=== PATIENT | male | born 1970 | race Caucasian/White ===

== ENCOUNTER 2018-09-13 08:43 | Emergency (ER) | payer BC ==
[2018-09-13] MEDS ORDERED: NORMAL SALINE 1000 ML 1,000 ML IV ONE (09:24)
[2018-09-13] MEDS ORDERED: ONDANSETRON HCL INJ/PF 4 MG/2 ML SDV IV ONE (09:24)
[2018-09-13] MEDS ORDERED: BENZONATATE 100 MG CAPSULE PO ONE (09:25)
--- NOTE | 2018-09-13 09:32 | ER Document Report ---
ED General - General Chief Complaint: Dizziness Stated Complaint: POSSIBLE SYNCOPE Time Seen by Provider: 09/13/18 09:12 Notes: Patient is a 40-year-old male presents to the emergency department with a chief complaint of productive cough and lightheadedness. Patient states he developed a productive cough 2 weeks ago with yellow sputum. Patient reports that the cough is worse at night. Patient states he is coughed so much she feels like h is throat is raw. Patient denies chest pain or palpitations. Patient does report that it is hard to get a deep breath. Patient states he has had low- grade fevers with chills at home. Patient denies vomiting or diarrhea. Patient has had nausea with cough. Patient states he was driving from [place] to [place] today when he felt lightheaded and like he was going to pass out. Patient states he sought care at that time. Patient does report a history of high blood pressure in which she did take his medication this morning. Patient has not taken his meds for his blood pressure in the past few days. TRAVEL OUTSIDE OF THE [place] IN LAST 30 DAYS: No - Related Data Allergies/Adverse Reactions: No Known Allergies Allergy (Verified 09/13/18 08:44) Past Medical History - General Information source: Patient - Social History Smoking Status: Current Every Day Smoker Cigarette use (# per day): Yes - 3/4 ppd Frequency of alcohol use: None Drug Abuse: None Lives with: Family Family History: None - Past Medical History Cardiac Medical History: Reports: Hx Hypertension Pulmonary Medical History: Reports: None EENT Medical History: Reports: None Neurological Medical History: Reports: None Endocrine Medical History: Reports: None Renal/ Medical History: Reports: None Malignancy Medical History: Reports None GI Medical History: Reports: None Musculoskeletal Medical History: Reports None Skin Medical History: Reports None Psychiatric Medical History: Reports: None Traumatic Medical History: Reports: None Infectious Medical History: Reports: None Past Surgical History: Reports: Hx Abdominal Surgery Review of Systems - Review of Systems Constitutional: See HPI EENT: No symptoms reported Cardiovascular: See HPI Respiratory: See HPI Gastrointestinal: See HPI Genitourinary: No symptoms reported Male Genitourinary: No symptoms reported Musculoskeletal: No symptoms reported Skin: No symptoms reported Hematologic/Lymphatic: No symptoms reported Neurological/Psychological: No symptoms reported Physical Exam - Vital signs Vitals: Temp Pulse Resp BP Pulse Ox 97.2 F 104 H 26 H 159/120 H 100 09/13/18 08:45 09/13/18 08:45 09/13/18 08:45 09/13/18 08:45 09/13/18 08:45 Interpretation: Hypertensive, Tachycardic, Tachypneic - Notes Notes: GENERAL: Well-appearing, well-nourished and in no acute distress. HEAD: Atraumatic, normocephalic. EYES: Pupils equal round and reactive to light, extraocular movements intact, sclera anicteric, conjunctiva are normal. ENT: TMs normal, nares patent, oropharynx reddened without exudates. Moist mucous membranes. NECK: Normal range of motion, supple without lymphadenopathy or JVD. LUNGS: Scattered rhonchi noted throughout that clears with cough. No wheezes rales or rhonchi. HEART: Tachycardiac rate and regular rhythm without murmurs, rubs or gallops. ABDOMEN: Soft, round, midline healed old scar, nontender, normoactive bowel sounds. No guarding, no rebound. No masses appreciated. BACK: No cervical, thoracic, lumbar midline tenderness. No saddle anesthesia, normal distal neurovascular exam. GENITOURINARY: Deferred. EXTREMITIES: Normal range of motion, no pitting or edema. No clubbing or cyanosis. NEUROLOGICAL: Cranial nerves II through XII grossly intact. Normal speech, normal gait. PSYCH: Normal mood, normal affect. SKIN: Warm, Dry, normal turgor, no rashes or lesions noted. Course - Re-evaluation Re-evalutation: 09/13/18 12:45 Upon reevaluation patient is resting comfortably and sleeping on stretcher. Patient is easy to arouse. Patient states feeling much better with his breathing after receiving a DuoNeb. Patient states his cough has subsided since receiving the Tessalon Perles. Patient states he does feel better. Was noted that patient had occasional PVCs on the monitor. Patient denies chest pain or palpitations. Patient says he does have some chest discomfort but this is associated with coughing spells. 09/13/18 13:14 Discussed patient's case and symptoms with Dr. Rice who went to evaluate comp lete the patient at the bedside. He agrees with the treatment plan. I did discuss with the patient to decrease smoking or stop if he is able to as this can make his symptoms worsen and last longer. Also encourage patient to increase fluid intake limit, limit caffeine and alcohol as this can also cause PVCs. - Vital Signs Vital signs: Temp Pulse Resp BP Pulse Ox 97.2 F 104 H 20 159/99 H 95 09/13/18 08:45 09/13/18 08:45 09/13/18 13:05 09/13/18 13:18 09/13/18 13:05 - Laboratory Result Diagrams: 09/13/18 09:20 09/13/18 09:20 Laboratory results interpreted by me: 09/13/18 09/13/18 09:20 09:20 RBC 5.60 H MCV 79 L MCH 26.9 L RDW 14.4 H Glucose 120 H ALT 20 L - Diagnostic Test Radiology reviewed: Reports reviewed Discharge - Discharge Clinical Impression: Bronchitis Condition: Stable Disposition: HOME, SELF-CARE Additional Instructions: Today you were seen in the emergency department for productive cough and lightheadedness. We did obtain a chest x-ray which was negative for pneumonia. Your lab work was unremarkable including a Troponin which is a cardiac enzyme. Your EKG was normal but did show an occasional PVC. A PVC is a premature beat. These can become problematic when they are more frequent and cause symptoms such as palpitations associated with passing out, dizziness, or a feeling of passing out. Seek medical attention if you experience any of the symptoms. These follow-up with your primary care physician. Your symptoms are consistent with bronchitis. Typically bronchitis is not treated with antibiotics. I am going to prescribe you an albuterol inhaler, Tessalon Perles for cough, a codeine cough syrup that you can use at night for the persistent cough. Please decrease smoking as this can irritate your lungs and cause the symptoms of the bronchitis to worsen. Please call your primary care doctor and schedule a follow up appointment for early next week. Over the weekend if your symptoms worsen you d evelop a fever, vomiting, increased shortness of breath, or any other concerning signs or symptoms please seek medical attention in the emergency department. PVCs The palpitations you feel are due to premature heartbeats, often called PVCs. Often the "extra" beat is not felt -- instead you feel a pause followed by a strong heartbeat. These premature beats are not harmful to you. Your evaluation has shown no evidence of active heart disease. Extra beats occur more commonly after caffeine, nicotine, alcohol, cold pills, and diet pills. Emotional stress or fatigue also provoke them. Extra beats are only dangerous when heart disease is present. Premature beats usually need no treatment. If they are frequent, or if evidence of heart disease develops, medication can be given to suppress them. Contact the physician at once if you develop persistent lightheadedness, shortness of breath, chest pain, or swelling of the ankles. Bronchitis You have acute bronchitis. This disease is an infection or inflammation of the air passageways in your lungs. Symptoms usually include cough, low grade fever, shortness of breath, and wheezing. The cough usually persists for a couple of weeks. Most cases of bronchitis get better without antibiotics. We prescribe antibiotics when we believe bacteria are damaging your airways, or if there's high risk the bronchitis will worsen into pneumonia. Increase your fluid intake. A cool mist humidifier may make your lungs more comfortable. An expectorant (cough medicine that loosens phlegm) can help. If you smoke, STOP!!! Recovery from bronchitis can be somewhat slow, but you should see improvement within a day or two. Repeated episodes of bronchitis may result in lung damage -- for example, chronic bronchitis, recurrent pneumonias, or emphysema. Call the doctor if you develop increasing fever, shortness of breath, chest pain, bloody sputum, or otherwise worsen. If you have not improved at all after several days, contact the physician. Cough Suppressant/Expectorant Medication You are to use a cough medication as needed for relief of symptoms. This medicine is a combination of an expectorant (to make the mucous thinner and more easily "coughed up") and a cough suppressant (to reduce the frequency of coughing). The cough-suppressant medicine is related to narcotics. You may experience mild nausea and sleepiness. Some patients who are very sensitive to narcotics may have stomach pain from this medicine. Taking the medicine with food reduces these side effects. Do not drive or work with machinery until you know how this medicine affects you. The expectorant should have no side effects. Iodine-containing expectorants (such as organidin) should not be taken by persons with active thyroid disease unless approved by your doctor. Call the doctor if you develop shortness of breath, hives, rash, itching, lightheadedness, or severe nausea and vomiting. Prescriptions: Benzonatate [Tessalon Perles 100 mg Capsule] 100 mg PO Q8HP PRN #40 capsule PRN Reason: Albuterol Sulfate [Proair HFA Inhalation Aerosol 8.5 gm MDI] 2 puff IH Q4H PRN #1 mdi PRN Reason: Codeine/Promethazine HCl [Promethazine-Codeine Syrup] 5 ml PO Q4 PRN #1 bottle PRN Reason: Forms: Return to Work
[2018-09-13 09:44] LABS: ABSOLUTE BASOPHILS # (AUTO) 0.1 10^3/uL (0.0-0.2); ABSOLUTE EOSINOPHILS # (AUTO) 0.1 10^3/uL (0.0-0.6); ABSOLUTE LYMPHOCYTES (AUTO) 1.8 10^3/uL (0.5-4.7); ABSOLUTE MONOCYTES (AUTO) 0.7 10^3/uL (0.1-1.4); ABSOLUTE NEUT (AUTO) 5.4 10^3/uL (1.7-8.2); BASOPHILS % (AUTO) 0.8 % (0-2); EOSINOPHILS % (AUTO) 1.7 % (0-6); HEMATOCRIT 44.2 % (37.9-51.0); HEMOGLOBIN 15.1 g/dL (13.5-17.0); LYMPHOCYTES % (AUTO) 22.4 % (13-45); MEAN CORPUSCULAR HEMOGLOBIN 26.9 pg (27.0-33.4); MEAN CORPUSCULAR HGB CONC 34.1 g/dL (32.0-36.0); MEAN CORPUSCULAR VOLUME 79 fl (80-97); MONOCYTES % (AUTO) 8.5 % (3-13); PLATELET COUNT 311 10^3/uL (150-450); RED CELL DISTRIBUTION WIDTH 14.4 % (11.5-14.0); SEGMENTED NEUTROPHILS % (AUTO) 66.6 % (42-78); TOTAL CELLS COUNTED % (AUTO) 100 %; WHITE BLOOD COUNT 8.1 10^3/uL (4.0-10.5)
[2018-09-13 10:01] LABS: ALANINE AMINOTRANSFERASE 20 U/L (21-72); ALBUMIN 4.4 g/dL (3.5-5.0); ALKALINE PHOSPHATASE 75 U/L (38-126); ANION GAP 11 (5-19); ASPARTATE AMINO TRANSFERASE 23 U/L (17-59); BILIRUBIN,DIRECT 0.3 mg/dL (0.0-0.4); BILIRUBIN,TOTAL 0.9 mg/dL (0.2-1.3); BLOOD UREA NITROGEN 15 mg/dL (7-20); CALCIUM 9.4 mg/dL (8.4-10.2); CARBON DIOXIDE 23 mmol/L (22-30); CHLORIDE 107 mmol/L (98-107); GLUCOSE 120 mg/dL (75-110); POTASSIUM 4.2 mmol/L (3.6-5.0); SODIUM 141.3 mmol/L (137-145); TOTAL PROTEIN 7.5 g/dL (6.3-8.2)
--- NOTE | 2018-09-13 10:24 | RADIOLOGY REPORT (SQ) ---
EXAM DESCRIPTION: CHEST 2 VIEWS COMPLETED DATE/TIME: 09/13/2018 10:06 am REASON FOR STUDY: productive cough x 2 weeks COMPARISON: None. EXAM PARAMETERS: NUMBER OF VIEWS: two views TECHNIQUE: Digital Frontal and Lateral radiographic views of the chest acquired. RADIATION DOSE: NA LIMITATIONS: none FINDINGS: LUNGS AND PLEURA: No opacities, masses or pneumothorax. No pleural effusion. MEDIASTINUM AND HILAR STRUCTURES: No masses or contour abnormalities. HEART AND VASCULAR STRUCTURES: Heart normal size. No evidence for failure. BONES: No acute findings. HARDWARE: None in the chest. OTHER: No other significant finding. IMPRESSION: NO ACUTE RADIOGRAPHIC FINDING IN THE CHEST. TECHNICAL DOCUMENTATION: JOB ID: [id number] [employer]- All Rights Reserved Reading location - IP/workstation name: [email or web address]
[2018-09-13] MEDS ORDERED: IPRATROPIUM/ALBUTEROL 0.5-2.5 MG/3 ML AMPUL NEB ONE (10:32)
[2018-09-13 13:21] VITALS: BP 159/99
--- NOTE | 2018-09-13 22:21 | EKG REPORT ---
SEVERITY:- BORDERLINE ECG - SINUS RHYTHM VENTRICULAR PREMATURE COMPLEX BORDERLINE IVCD WITH LAD : Confirmed by: Luis A Kidd MD 13-Sep-2018 22:21:09
== END 2018-09-13 13:21 | disposition home or self-care (01) ==
LOC: ER 08:43
DX: J20.9 Acute bronchitis, unspecified (principal); R42 Dizziness and giddiness; R05 Cough; F17.210 Nicotine dependence, cigarettes, uncomplicated; I10 Essential (primary) hypertension
CPT/HCPCS: 94640; 99284; 96361; 96374; 36415; 85025; 80053; 84484; 71046; 93005; 93010; J2405; J7030; J7620